=== PATIENT | male | born 1970 | race Caucasian/White ===

== ENCOUNTER 2017-12-27 21:28 | Inpatient (IN) | payer OTHER ==
[~2017-12-27] VITALS: Ht 180.3 cm; Wt 110.5 kg
[~2017-12-27 21:28] MED LIST: FLEXERIL10 MG PO
[2017-12-27 22:21] LABS: HEMATOCRIT 46.2 % (38.0-50.0); HEMOGLOBIN 16.8 G/DL (12.5-16.6); MCH 33.8 PG (29.0-34.0); MCHC 36.4 G/DL (30.0-36.0); PLATELET COUNT 147 K/uL (156-360); RBC DIS.WIDTH-SD 41.4 % (39-53); RED BLOOD COUNT 4.97 M/uL (4.00-5.50); WHITE BLOOD COUNT 4.6 K/uL (4.1-10.2)
[2017-12-27 22:34] LABS: ALBUMIN 4.7 g/dL (3.2-4.8); CHLORIDE 102 mEq/L (99-109); POTASSIUM 3.3 mEq/L (3.7-5.4); SODIUM 143 mEq/L (136-147)
[2017-12-27 22:37] LABS: GLUCOSE 157 mg/dL (70-99); TOTAL PROTEIN 7.8 g/dL (6.4-8.3)
[2017-12-27 22:38] LABS: TOTAL BILIRUBIN 1.1 mg/dL (0.0-1.0)
[2017-12-27 22:40] LABS: ALKALINE PHOSPHATASE 59 IU/L (3-129); CREATININE 1.1 mg/dL (0.6-1.3); GFR ESTIMATE (CALCULATED) > 59 mL/min/ (58.99-99999)
[2017-12-27 22:41] LABS: UREA NITROGEN (BUN) 11 mg/dL (9-23)
[2017-12-27 22:42] LABS: AST (GOT) 170 IU/L (2-34)
[2017-12-27 22:43] LABS: ALT (GPT) 183 IU/L (3-49)
[2017-12-27 23:38] LABS: MAGNESIUM 1.7 mg/dL (1.3-2.7)
[2017-12-27 23:42] LABS: SERUM ETHYL ALCOHOL 14 mg/dL
[2017-12-27 23:45] LABS: LIPASE 62 U/L (1.0-51.0)
[2017-12-27] MEDS ORDERED: SERTRALINE HCL100 MG PO (23:49)
[2017-12-27] MEDS ORDERED: OMEPRAZOLE20 M2 PO (23:50)
[2017-12-28] VITALS (7 sets, daily range): BP systolic 132–171; BP diastolic 71–101
[2017-12-28 06:58] LABS: TROP-I INTERPRETATION NEGATIVE; TROPONIN-I < 0.01 ng/mL (0.0-0.30)
[2017-12-28 12:03] LABS: HEPATITIS B SURFACE ANTIGEN Nonreactive; HEPATITIS C ANTIBODY Nonreactive
[2017-12-28 12:04] LABS: HEPATITIS B SURFACE ANTIBODY Nonreactive
[2017-12-28 12:05] LABS: ANTI-HEPATITIS B CORE (IGM) Nonreactive
[2017-12-29] VITALS (7 sets, daily range): BP systolic 143–164; BP diastolic 75–99
[2017-12-29 05:53] LABS: HEMATOCRIT 42.5 % (38.0-50.0); MCH 32.7 PG (29.0-34.0); MCHC 34.6 G/DL (30.0-36.0); MCV 94.4 FL (86-99); PLATELET COUNT 124 K/uL (156-360); RBC DIS.WIDTH-CV 11.9 % (11.8-14.6); RBC DIS.WIDTH-SD 41.8 % (39-53); WHITE BLOOD COUNT 4.7 K/uL (4.1-10.2)
[2017-12-29 05:54] LABS: HEMOGLOBIN 14.7 G/DL (12.5-16.6)
[2017-12-29 06:14] LABS: CHLORIDE 102 MEQ/L (99-109); GFR ESTIMATE (CALCULATED) > 59 mL/min/ (58.99-99999); POTASSIUM 3.3 MEQ/L (3.7-5.4); SODIUM 140 MEQ/L (136-147); UREA NITROGEN (BUN) 7 mg/dL (9-23)
[2017-12-29 06:15] LABS: GLUCOSE 99 mg/dL (70-99)
[2017-12-29 08:37] LABS: ALBUMIN 3.8 G/DL (3.2-4.8); ALKALINE PHOSPHATASE 38 IU/L (3-129); ALT (GPT) 104 IU/L (3-49); AST (GOT) 93 IU/L (2-34); DIRECT BILIRUBIN 0.3 mg/dL (0.0-0.3); TOTAL BILIRUBIN 1.2 MG/DL (0.0-1.0); TOTAL PROTEIN 5.9 G/DL (6.4-8.3)
[2017-12-30 04:36] VITALS: BP 139/88
[2017-12-30 07:16] VITALS: BP 135/86
[2017-12-30 11:23] VITALS: BP 119/70
[2017-12-31 08:47] VITALS: BP 122/79
[2017-12-31 11:29] VITALS: BP 147/92
[2017-12-31] MEDS ORDERED: THERAGRAN1 TABLET PO (14:03)
[2017-12-31] MEDS ORDERED: CHLORDIAZEPOXID25 MG PO (14:03)
[2017-12-31] MEDS ORDERED: FOLIC ACID1 MG PO (14:03)
[2017-12-31] MEDS ORDERED: THIAMINE HCL100 MG PO (14:03)
[2017-12-31] MEDS ORDERED: LORAZEPAM2 MG PO (14:03)
== END 2017-12-31 15:45 | disposition home or self-care (01) | DRG 897 ==
LOC: EME 21:28 → EDOF 12-28 00:29 → 5WEST 12-28 00:29 → EDOF 12-28 00:29 → ENRESERV 12-28 00:32 → 5WEST 12-28 01:31 → ENPENDDIS 12-31 15:09 → 5WEST 12-31 15:45
PROVIDERS: Hospitalist
DX: F10.239 Alcohol dependence with withdrawal, unspecified (principal); E87.6 Hypokalemia; Y90.0 Blood alcohol level of less than 20 mg/100 ml; E86.0 Dehydration; F10.229 Alcohol dependence with intoxication, unspecified; E66.9 Obesity, unspecified; Z68.33 Body mass index [BMI] 33.0-33.9, adult; K76.0 Fatty (change of) liver, not elsewhere classified; K29.20 Alcoholic gastritis without bleeding; K70.10 Alcoholic hepatitis without ascites; F41.9 Anxiety disorder, unspecified; Z87.891 Personal history of nicotine dependence
CPT/HCPCS: 74177; 80048; 80053; 80076; 81003; 83690; 83735; 84100; 84484; 85027; 86705; 86706; 86803; 87340; 93005; 93306; 99281; 99285; C9113; G0378; G0480; J1650; J2060; J2405; J3411; J3475; J7030

== ENCOUNTER 2018-02-19 13:10 | Inpatient (IN) | payer OTHER ==
[~2018-02-19] VITALS: Ht 177.8 cm; Wt 113.5 kg
[~2018-02-19 13:10] MED LIST changes: +CHLORDIAZEPOXID25 MG PO; +FOLIC ACID1 MG PO; +LORAZEPAM2 MG PO; +OMEPRAZOLE20 M2 PO; +SERTRALINE HCL100 MG PO; +THERAGRAN1 TABLET PO; +THIAMINE HCL100 MG PO
[2018-02-19 14:16] LABS: BASOPHIL COUNT 0.1 K/uL (0-0.1); EOSINOPHIL (%) 0 % (0-5); HEMATOCRIT 44.9 % (38.0-50.0); HEMOGLOBIN 16.5 G/DL (12.5-16.6); IMMATURE GRANULOCYTE (%) 0.2 % (0.0-0.7); LYMPHOCYTE (%) 12.3 % (15-42); MCH 32.8 PG (29.0-34.0); MCHC 36.7 G/DL (30.0-36.0); MCV 89.3 FL (86-99); MONOCYTE (%) 5.5 % (3-12); MONOCYTE COUNT 0.5 K/uL (0-0.8); NEUTROPHIL COUNT 6.6 K/uL (1.8-6.4); PLATELET COUNT 221 K/uL (156-360); RBC DIS.WIDTH-CV 11.6 % (11.8-14.6); RBC DIS.WIDTH-SD 37.8 % (39-53); RED BLOOD COUNT 5.03 M/uL (4.00-5.50); WHITE BLOOD COUNT 8.2 K/uL (4.1-10.2)
[2018-02-19 14:23] LABS: CHLORIDE 101 mEq/L (99-109); POTASSIUM 3.5 mEq/L (3.7-5.4); SODIUM 140 mEq/L (136-147)
[2018-02-19 14:24] LABS: ALBUMIN 4.6 g/dL (3.2-4.8); MAGNESIUM 1.9 mg/dL (1.3-2.7)
[2018-02-19 14:26] LABS: GLUCOSE 122 mg/dL (70-99); TOTAL PROTEIN 7.3 g/dL (6.4-8.3)
[2018-02-19 14:28] LABS: TOTAL BILIRUBIN 1.6 mg/dL (0.0-1.0)
[2018-02-19 14:29] LABS: SERUM ETHYL ALCOHOL < 10 mg/dL
[2018-02-19 14:30] LABS: ALKALINE PHOSPHATASE 56 IU/L (3-129); CREATININE 0.9 mg/dL (0.6-1.3); GFR ESTIMATE (CALCULATED) > 59 mL/min/ (58.99-99999)
[2018-02-19 14:31] LABS: AST (GOT) 90 IU/L (2-34); UREA NITROGEN (BUN) 9 mg/dL (9-23)
[2018-02-19 14:33] LABS: ALT (GPT) 87 IU/L (3-49)
[2018-02-19 16:28] LABS: TROP-I INTERPRETATION NEGATIVE; TROPONIN-I < 0.01 ng/mL (0.0-0.30)
[2018-02-19 17:01] LABS: TROP-I INTERPRETATION NEGATIVE; TROPONIN-I < 0.01 ng/mL (0.0-0.30)
[2018-02-19] MEDS ORDERED: NASAL DECONGEST30 MG PO (17:42)
[2018-02-19] MEDS ORDERED: ZYRTEC10 M3 PO (17:43)
[2018-02-19 18:36] VITALS: BP 140/90
[2018-02-19 20:27] VITALS: BP 174/81
[2018-02-19 23:18] LABS: TROP-I INTERPRETATION NEGATIVE; TROPONIN-I 0.01 ng/mL (0.0-0.30)
[2018-02-19 23:48] VITALS: BP 159/88
[2018-02-20 04:20] VITALS: BP 160/81
[2018-02-20 04:45] LABS: HEMATOCRIT 41.1 % (38.0-50.0); HEMOGLOBIN 14.7 G/DL (12.5-16.6); MCH 32.8 PG (29.0-34.0); MCHC 35.8 G/DL (30.0-36.0); MCV 91.7 FL (86-99); PLATELET COUNT 161 K/uL (156-360); RBC DIS.WIDTH-CV 11.7 % (11.8-14.6); RBC DIS.WIDTH-SD 39.2 % (39-53); RED BLOOD COUNT 4.48 M/uL (4.00-5.50); WHITE BLOOD COUNT 5.6 K/uL (4.1-10.2)
[2018-02-20 04:58] LABS: ALBUMIN 3.8 g/dL (3.2-4.8)
[2018-02-20 04:59] LABS: CHLORIDE 105 mEq/L (99-109); POTASSIUM 3.9 mEq/L (3.7-5.4); SODIUM 140 mEq/L (136-147)
[2018-02-20 05:01] LABS: GLUCOSE 101 mg/dL (70-99)
[2018-02-20 05:02] LABS: TOTAL PROTEIN 5.7 g/dL (6.4-8.3)
[2018-02-20 05:04] LABS: ALKALINE PHOSPHATASE 50 IU/L (3-129)
[2018-02-20 05:05] LABS: CREATININE 0.9 mg/dL (0.6-1.3); GFR ESTIMATE (CALCULATED) > 59 mL/min/ (58.99-99999)
[2018-02-20 05:06] LABS: AST (GOT) 62 IU/L (2-34); UREA NITROGEN (BUN) 7 mg/dL (9-23)
[2018-02-20 05:07] LABS: ALT (GPT) 63 IU/L (3-49)
[2018-02-20 05:10] LABS: TROP-I INTERPRETATION NEGATIVE; TROPONIN-I < 0.01 ng/mL (0.0-0.30)
[2018-02-20 08:00] VITALS: BP 130/72
[2018-02-20 15:31] VITALS: BP 145/98
[2018-02-20 19:30] VITALS: BP 142/88
[2018-02-20 23:19] VITALS: BP 129/80
[2018-02-21 03:49] VITALS: BP 161/83
[2018-02-21 05:32] LABS: BASOPHIL (%) 1.3 % (0-1); BASOPHIL COUNT 0.1 K/uL (0-0.1); EOSINOPHIL (%) 4.8 % (0-5); EOSINOPHIL COUNT 0.2 K/uL (0-0.3); HEMATOCRIT 40.8 % (38.0-50.0); HEMOGLOBIN 14.2 G/DL (12.5-16.6); IMMATURE GRANULOCYTE (%) 0.2 % (0.0-0.7); LYMPHOCYTE (%) 33.8 % (15-42); LYMPHOCYTE COUNT 1.6 K/uL (1.0-2.8); MCH 31.8 PG (29.0-34.0); MCHC 34.8 G/DL (30.0-36.0); MCV 91.5 FL (86-99); MONOCYTE (%) 7.4 % (3-12); MONOCYTE COUNT 0.3 K/uL (0-0.8); NEUTROPHIL (%) 52.5 % (45-76); NEUTROPHIL COUNT 2.4 K/uL (1.8-6.4); PLATELET COUNT 148 K/uL (156-360); RBC DIS.WIDTH-CV 11.6 % (11.8-14.6); RBC DIS.WIDTH-SD 38.9 % (39-53); RED BLOOD COUNT 4.46 M/uL (4.00-5.50); WHITE BLOOD COUNT 4.6 K/uL (4.1-10.2)
[2018-02-21 06:02] LABS: ALBUMIN 3.6 G/DL (3.2-4.8); ALKALINE PHOSPHATASE 37 IU/L (3-129); ALT (GPT) 47 IU/L (3-49); AST (GOT) 35 IU/L (2-34); CHLORIDE 106 MEQ/L (99-109); CREATININE 0.9 MG/DL (0.6-1.3); GFR ESTIMATE (CALCULATED) > 59 mL/min/ (58.99-99999); GLUCOSE 110 mg/dL (70-99); POTASSIUM 3.2 MEQ/L (3.7-5.4); SODIUM 141 MEQ/L (136-147); TOTAL PROTEIN 5.5 G/DL (6.4-8.3); UREA NITROGEN (BUN) 6 mg/dL (9-23)
[2018-02-21 07:51] VITALS: BP 149/77
[2018-02-21 11:30] VITALS: BP 144/82
[2018-02-21 15:47] VITALS: BP 147/85
[2018-02-21 19:22] VITALS: BP 143/101
[2018-02-21 21:01] VITALS: BP 132/80
[2018-02-22 05:28] VITALS: BP 141/88
[2018-02-22 07:28] VITALS: BP 142/71
[2018-02-22 08:29] LABS: ALBUMIN 3.8 G/DL (3.2-4.8); ALKALINE PHOSPHATASE 37 IU/L (3-129); ALT (GPT) 52 IU/L (3-49); AST (GOT) 39 IU/L (2-34); CHLORIDE 106 MEQ/L (99-109); CREATININE 0.9 MG/DL (0.6-1.3); GFR ESTIMATE (CALCULATED) > 59 mL/min/ (58.99-99999); GLUCOSE 104 mg/dL (70-99); POTASSIUM 3.9 MEQ/L (3.7-5.4); SODIUM 140 MEQ/L (136-147); TOTAL BILIRUBIN 0.8 MG/DL (0.0-1.0); TOTAL PROTEIN 5.4 G/DL (6.4-8.3); UREA NITROGEN (BUN) 4 mg/dL (9-23)
[2018-02-22] MEDS ORDERED: FLUCONAZOLE200 MG PO (09:00)
[2018-02-22] MEDS ORDERED: ZOLOFT50 MG PO (09:00)
[2018-02-22] MEDS ORDERED: THORAZINE25 MG PO (09:00)
[2018-02-22 11:39] VITALS: BP 148/85
== END 2018-02-22 12:35 | disposition home or self-care (01) | DRG 392 ==
LOC: EME 13:10 → 3EAST 16:00 → EDOF 16:00 → ENRESERV 16:01 → CANRESERV 16:27 → ENRESERV 16:34 → 3EAST 18:08
PROVIDERS: Emergency Medicine; Hospitalist; Physician Assistant Medical; Specialist
DX: K29.20 Alcoholic gastritis without bleeding (principal); B37.81 Candidal esophagitis; F10.232 Alcohol dependence with withdrawal with perceptual disturbance; K21.9 Gastro-esophageal reflux disease without esophagitis; E86.0 Dehydration; E87.6 Hypokalemia; R06.6 Hiccough; R00.0 Tachycardia, unspecified; R94.31 Abnormal electrocardiogram [ECG] [EKG]; T51.0X1A Toxic effect of ethanol, accidental (unintentional), initial encounter; D69.59 Other secondary thrombocytopenia; K70.0 Alcoholic fatty liver; F41.8 Other specified anxiety disorders; G40.909 Epilepsy, unspecified, not intractable, without status epilepticus; J30.89 Other allergic rhinitis; E66.9 Obesity, unspecified; Z68.35 Body mass index [BMI] 35.0-35.9, adult; F12.90 Cannabis use, unspecified, uncomplicated; Z87.891 Personal history of nicotine dependence
CPT/HCPCS: 80053; 82150; 83735; 84484; 85025; 85027; 88305; 88312; 88342 TC; 93005; 99281; 99285; C9113; G0480; J1200; J1650; J2060; J2765; J3411; J3480; J7030; J7040; Q0161; S0028